=== PATIENT | male | born 1990 ===

== ENCOUNTER 2016-09-09 08:22 | Emergency (ER) | payer SELFPAY ==
[2016-09-09 08:48] VITALS: TEMP 98.7
[2016-09-09] MEDS ORDERED: Amoxicillin-Clav 875-125 mg Tab PO STA (09:14)
--- NOTE | 2016-09-09 09:45 | ED PDOC ---
Arrival/HPI - General Historian: Patient - General Chief Complaint: Headache Time Seen by Provider: 09/09/16 09:06 - History of Present Illness Narrative History of Present Illness (Text): 09/09/16 09:45 26-year-old male presents today with a 2 day history of pain localized over the left side of the forehead at the left eyebrow. Patient states for the past 2 days he's had a pressure-like pain to the left side of the forehead. Patient states he takes Tylenol and Aleve with improvement in his symptoms. Patient states he has tenderness to palpation. Patient states about a week ago he was sick with nasal congestion and cold symptoms. He denies fevers or chills. Denies dizziness or weakness. Denies blurred vision. Denies swelling. Patient states he has had symptoms like this in the past. No medications have been taken for pain today. No neck pain. No other complaints (Elvira Mejias) Past Medical History - Provider Review Nursing Documentation Reviewed: Yes - Travel History Have you recently traveled outside [place] w/in the past 3 mons?: No - Infectious Disease Hx of Infectious Diseases: None - Tetanus Immunization Tetanus Immunization: Unknown - Psychiatric Hx Substance Use: No - Anesthesia Hx Anesthesia: No Family/Social History - Physician Review Nursing Documentation Reviewed: Yes Family/Social History: Unknown Family HX Smoking Status: Unknown If Ever Smoked Hx Alcohol Use: No Hx Substance Use: No Allergies/Home Meds Allergies/Adverse Reactions: Allergies No Known Allergies Allergy (Verified 09/09/16 08:48) Review of Systems - Review of Systems Constitutional: absent: Fatigue, Fevers Eyes: absent: Vision Changes, Photophobia, Eye Pain Respiratory: absent: SOB, Cough Cardiovascular: absent: Chest Pain, Palpitations Gastrointestinal: absent: Abdominal Pain, Nausea, Vomiting Musculoskeletal: absent: Arthralgias Neurological: Headache. absent: Dizziness, Focal Weakness, Disequilibrium Physical Exam Vital Signs Reviewed: Yes Temperature: Afebrile Blood Pressure: Normal Pulse: Regular Respiratory Rate: Normal Appearance: Positive for: Well-Appearing, Non-Toxic, Comfortable Pain Distress: None Mental Status: Positive for: Alert and Oriented X 3 - Systems Exam Head: Present: Atraumatic, Tenderness (+ left frontal sinus ttp. no edema, no erythema; no eccymosis) Pupils: Present: PERRL Extroacular Muscles: Present: EOMI Conjunctiva: Present: Normal. No: Injected Ears: Present: Normal, NORMAL TM Mouth: Present: Moist Mucous Membranes Pharnyx: Present: Normal. No: ERYTHEMA, EXUDATE, TONSILS ENLARGED, Peritonsilar Swelling, Uvular Deviation, Muffled/Hoarse Voice Nose (External): Present: Atraumatic Nose (Internal): Present: Engorged, Clear Mucous. No: Septal Hematoma Neck: Present: Normal Range of Motion. No: Meningeal Signs, MIDLINE TENDERNESS , Paraspinal Tenderness, Lymphadenopathy Respiratory/Chest: Present: Clear to Auscultation, Good Air Exchange. No: Respiratory Distress, Accessory Muscle Use Cardiovascular: Present: Regular Rate and Rhythm, Normal S1, S2. No: Murmurs Vital Signs Temp Pulse Resp BP Pulse Ox 09/09/16 11:13 67 17 119/76 99 09/09/16 08:45 98.7 F 66 18 117/73 98 Medical Decision Making ED Course and Treatment: I was available for consultation during PA evaluation. The chart was reviewed by me, and I agree with disposition. The documented history was done by the physician stage set up worker. The documented physical exam was done by the physician stage set up worker. The documented procedures were done by the physician stage set up worker. (Ulisses Resendiz) 09/09/16 10:21 Patient is nontoxic well-appearing in no distress with stable vital signs complaining of left-sided frontal tenderness to palpation. Patient with sinus congestion and left-sided frontal sinus tenderness to palpation we'll treat for sinusitis. Patient is nontoxic well-appearing; on his cell phone in the emergency room no distress. Toradol and Augmentin given Patient was advised to follow-up with the ENT specialist as well as the interior specialist. He was advised immediate return is symptoms worsen persist or if new concerning symptoms develop Patient verbalizes understanding of discharge instructions and need for immediate followup. Impression: Headache, sinusitis Motrin every 6 hours as needed for pain Augmentin 1 tablet twice daily 10 days Follow-up with the ENT specialist within the next 2 days Follow-up with the eye doctor within the next 2 days Following the primary care physician within the next 2 days Return immediately if symptoms worsen persist or if new symptoms develop: Headaches, blurry vision, dizziness, weakness or any other concerning symptoms develop (Elvira Mejias) - Medication Orders Current Medication Orders: Discontinued Medications Amoxicillin/Clavulanate Potassium (Augmentin 875 Mg-125 Mg Tab) 1 tab PO STAT STA PRN Reason: Protocol Stop: 09/09/16 09:15 Last Admin: 09/09/16 09:40 Dose: 1 TAB Ketorolac Tromethamine (Toradol) 60 mg IM STAT STA Stop: 09/09/16 09:15 Last Admin: 09/09/16 09:40 Dose: 60 MG IM Administration Charges Document 09/09/16 09:40 SF (Rec: 09/09/16 09:40 SF [id number]) Injection Site MAR Injection Site Left Deltoid Charges for Administration # of IM Administrations 1 Disposition/Present on Arrival - Present on Arrival Any Indicators Present on Arrival: No History of DVT/PE: No History of Uncontrolled Diabetes: No Urinary Catheter: No History of Decub. Ulcer: No History Surgical Site Infection Following: None - Disposition Have Diagnosis and Disposition been Completed?: Yes Disposition Time: 09:14 Patient Plan: Discharge - Disposition Diagnosis: Headache, Sinusitis Disposition: HOME/ ROUTINE Condition: GOOD Discharge Instructions (ExitCare): Sinusitis (ED) Additional Instructions: Motrin every 6 hours as needed for pain Augmentin 1 tablet twice daily 10 days Follow-up with the ENT specialist within the next 2 days Follow-up with the eye doctor within the next 2 days Following the primary care physician within the next 2 days Return immediately if symptoms worsen persist or if new symptoms develop: Headaches, blurry vision, dizziness, weakness or any other concerning symptoms develop Prescriptions: Amoxicillin/Clavulanate [Augmentin 875 MG-125 MG] 1 tab PO BID #20 tab Ibuprofen [Motrin] 600 mg PO Q6H PRN #20 tab PRN Reason: pain/fever reduction Referrals: Jc Snyder DO [Staff Provider] - Follow up with primary Lacho Acevedo [Staff Provider] - Follow up with primary Tessie Smith MD [Medical Doctor] - Follow up with primary [facility] [Outside] - Follow up with primary Forms: WORK NOTE
[2016-09-09 11:15] VITALS: BP 119/76; PULSE 67; RESP 17; O2SAT 99
== END 2016-09-09 11:14 | disposition home or self-care (01) ==
LOC: ED 08:22
DX: R51 Headache (principal); J32.9 Chronic sinusitis, unspecified
CPT/HCPCS: 96372; 99285; J1885